=== PATIENT | male | born 1945 | race Caucasian/White ===

== ENCOUNTER 2016-08-18 16:21 | Emergency (ER) | payer OTHER, MEDICARE ==
[2016-08-18 16:59] VITALS: BMI 21.4
[2016-08-18 17:03] VITALS: TEMP 98
[2016-08-18 20:02] VITALS: RESP 16
[2016-08-18 20:13] VITALS: BP 138/86; PULSE 78; O2SAT 99
--- NOTE | 2016-08-18 20:25 | ED PDOC ---
Arrival/HPI - General Chief Complaint: Trauma Time Seen by Provider: 08/18/16 17:12 Historian: Patient - History of Present Illness Narrative History of Present Illness (Text): 08/18/16 17:12 A 71 year old male presents to the emergency department complaining of left knee pain. Patient reports 1 month ago he slipped and fell striking his head. He denies any loss of consciousness at the time of the fall. Patient denies any chest pain, nausea, vomiting or any other complaints. PMD: None Time/Duration: Other (1 month) Symptom Onset: Sudden Symptom Course: Unchanged Quality: Other Activities at Onset: Rest Context: Street Past Medical History - Provider Review Nursing Documentation Reviewed: Yes - Cardiac Hx Hypertension: Yes - Endocrine/Metabolic Hx Diabetes Mellitus Type 2: Yes - Hematological/Oncological Hx Cancer: Yes (colon) - Psychiatric Hx Substance Use: No - Surgical History Other/Comment: colon surgery Family/Social History - Physician Review Nursing Documentation Reviewed: Yes Family/Social History: No Known Family HX Smoking Status: Unknown If Ever Smoked Hx Alcohol Use: No Hx Substance Use: No Allergies/Home Meds Allergies/Adverse Reactions: Allergies No Known Allergies Allergy (Verified 08/18/16 16:59) Home Medications: Home Meds Medication Instructions Recorded Confirmed Unobtainable 08/18/16 08/18/16 Review of Systems - Physician Review All systems were reviewed & negative as marked: Yes - Review of Systems Constitutional: Other (head trauma) Cardiovascular: absent: Chest Pain Gastrointestinal: absent: Nausea, Vomiting Musculoskeletal: Other (left knee pain) Physical Exam Vital Signs Reviewed: Yes Vital Signs Temp Pulse Resp BP Pulse Ox 08/18/16 20:13 78 16 138/86 99 08/18/16 18:30 80 16 148/90 98 08/18/16 17:02 98.0 F 61 18 154/79 H 99 Temperature: Afebrile Blood Pressure: Hypertensive Pulse: Regular Respiratory Rate: Normal Appearance: Positive for: Well-Appearing, Non-Toxic, Comfortable Pain Distress: None Mental Status: Positive for: Alert and Oriented X 3 - Systems Exam Head: Present: Atraumatic, Normocephalic Pupils: Present: PERRL Extroacular Muscles: Present: EOMI Conjunctiva: Present: Normal Mouth: Present: Moist Mucous Membranes Neck: Present: Normal Range of Motion Respiratory/Chest: Present: Clear to Auscultation, Good Air Exchange. No: Respiratory Distress, Accessory Muscle Use Cardiovascular: Present: Regular Rate and Rhythm, Normal S1, S2. No: Murmurs Abdomen: Present: Normal Bowel Sounds. No: Tenderness, Distention, Peritoneal Signs Back: Present: Normal Inspection Upper Extremity: Present: Normal Inspection. No: Cyanosis, Edema Lower Extremity: Present: Normal Inspection. No: Edema Neurological: Present: GCS=15, CN II-XII Intact, Speech Normal Skin: Present: Warm, Dry, Normal Color. No: Rashes Psychiatric: Present: Alert, Oriented x 3, Normal Insight, Normal Concentration Medical Decision Making ED Course and Treatment: 08/18/16 17:12 Impression: A 71 year old male with head trauma a month ago. Differential Diagnosis include but are not limited to: intracranial abnormalities vs. fracture Plan: -- Head CT -- Left knee X-ray -- Reassess and disposition Progress Notes: Patient is refusing left knee x-ray. 08/18/16 19:[address]: Dictated and Authenticated by: Cheri Rudd MD COMPARISON: No relevant prior studies available. FINDINGS: Brain: No acute intra or extra-axial hemorrhage. No mass or midline shift. Clear sinuses. No calvarial fracture. Senescent thinning of the right orbital lens. IMPRESSION: No intracranial hemorrhage. On re-evaluation, the patient is in no acute distress. I have discussed the results and plan with the patient, who expresses understanding. Patient in agreement with plan to discharged home. Patient is stable for discharge. Patient was instructed to follow up with physician/clinic in 1-2 days or return if symptoms worsen or new concerning symptoms arise. - RAD Interpretation Radiology Orders: 08/18/16 17:25 HEAD W/O CONTRAST [CT] Stat - Scribe Statement The provider has reviewed the documentation as recorded by the Scribe Nga Marquez Provider Scribe Attestation: All medical record entries made by the Scribe were at my direction and personally dictated by me. I have reviewed the chart and agree that the record accurately reflects my personal performance of the history, physical exam, medical decision making, and the department course for this patient. I have also personally directed, reviewed, and agree with the discharge instructions and disposition. Disposition/Present on Arrival - Present on Arrival Any Indicators Present on Arrival: No History of DVT/PE: No History of Uncontrolled Diabetes: No Urinary Catheter: No History of Decub. Ulcer: No History Surgical Site Infection Following: None - Disposition Have Diagnosis and Disposition been Completed?: Yes Diagnosis: Head contusion, Knee contusion Disposition: HOME/ ROUTINE Disposition Time: 19:10 Condition: GOOD Discharge Instructions (ExitCare): Head Injury (ED) Additional Instructions: Thank you for letting us take care of you today. Your provider was Dr. Armas. You were treated for head and knee contusion. The emergency medical care you received today was directed at your acute symptoms. If you were prescribed any medication, please fill it and take as directed. It may take several days for your symptoms to resolve. Return to the Emergency Department if your symptoms worsen, do not improve, or if you have any other problems. Please contact your doctor or call one of the physicians/clinics you have been referred to that are listed on the Patient Visit Information form that is included in your discharge packet. Bring any paperwork you were given at discharge with you along with any medications you are taking to your follow up visit. Our treatment cannot replace ongoing medical care by a primary care provider (PCP) outside of the emergency department. Thank you for allowing the [facility] team to be part of your care today. Follow up with your doctor in 1-2 days for re-evaluation. [facility] - Follow up with primary
--- NOTE | 2016-08-19 07:16 | CT ---
PROCEDURE: CT HEAD WITHOUT CONTRAST. HISTORY: r/o fx and ICH COMPARISON: None available. TECHNIQUE: Axial computed tomography images were obtained through the head/brain without intravenous contrast. Radiation dose: Total exam DLP = 808.94 MGy-cm. FINDINGS: HEMORRHAGE: No intracranial hemorrhage. BRAIN: No mass effect or edema. Mild atrophy and chronic microvascular ischemic changes. VENTRICLES: Unremarkable. No hydrocephalus. CALVARIUM: Unremarkable. PARANASAL SINUSES: Unremarkable as visualized. No significant inflammatory changes. MASTOID AIR CELLS: Unremarkable as visualized. No inflammatory changes. OTHER FINDINGS: None. IMPRESSION: No evidence of acute intracranial hemorrhage intracranial collection mass effect or midline shift. Atrophy and mild chronic microvascular white matter ischemic disease. Preliminary report was submitted by [facility].
== END 2016-08-18 20:13 | disposition home or self-care (01) ==
LOC: ED 16:21
DX: S00.93XA Contusion of unspecified part of head, initial encounter (principal); S80.02XA Contusion of left knee, initial encounter; W01.10XA Fall on same level from slipping, tripping and stumbling with subsequent striking against unspecified object, initial encounter; Y92.410 Unspecified street and highway as the place of occurrence of the external cause; I10 Essential (primary) hypertension; E11.9 Type 2 diabetes mellitus without complications